=== PATIENT | male | born 1970 | race Caucasian/White ===

== ENCOUNTER 2016-12-30 10:45 | Emergency (ER) | payer BC ==
[~2016-12-30] VITALS: Ht 190.5 cm; Wt 129.2 kg
[2016-12-30 10:48] VITALS: TEMP 99.5; Ht 190.5 cm; Wt 129.2 kg
--- OUTSIDE RECORDS SUMMARY | 2016-12-30 10:50 | XMS REPORT | Continuity of Care Document ---
Author Author [facility] Organization [facility] Address Unknown Phone Unavailable Allergies Active Description Code Type Severity Reaction Onset Reported/Identified Relationship to Patient Clinical Status Yes No Known Medication Allergies NKMA N/A N/A 10/28/2014 Medications Problems Procedures Results Test Result Range Comprehensive Metabolic Panel (CMP) - 08/08/16 11:15 Albumin 4.5 g/dL 3.5-5.0 Alkaline Phosphatase 66 U/L 40-150 ALT (SGPT) 32 U/L 0-55 Anion Gap 11 NA 3-20 AST (SGOT) 26 U/L 5-34 Bilirubin Total 1.1 mg/dL 0.2-1.2 BUN 12 mg/dL 9-21 Calcium 9.4 mg/dL 8.9-10.5 Chloride 108 mEq/L 99-111 CO2 21 mEq/L 23-31 Creatinine 1.05 mg/dL 0.72-1.25 Globulin 2.6 g/dL 1.8-4.0 Glucose 84 mg/dL 70-99 Potassium 4.4 mEq/L 3.5-5.2 Protein 7.1 g/dL 6.1-7.7 Sodium 140 mEq/L 135-144 Lipid Panel - 08/08/16 11:15 Cardiac Risk 4.3 0.0-5.7 Cholesterol 152 mg/dL 0-199 HDL Cholesterol 35 mg/dL 40-84 LDL Cholesterol 98 mg/dL 0-130 Triglycerides 96 mg/dL 0-149 VLDL Cholesterol 19 mg/dL 0-28 eGFR - 08/08/16 11:15 eGFR >60 mL/min >60 Encounters ACCT No. Visit Date/Time Discharge Status Pt. Type Provider Facility Loc./Unit Complaint [id number] 12/09/2016 13:05:00 2016 23:59:00 DIS Outpatient Stephania Hall [facility] swollen left knee. glands in neck swollen [id number] 08/08/2016 10:29:00 2015 23:59:00 DIS Outpatient Real Ford Neftali [facility] New FM TCPA PAIN IN GROIN ON RIGHT SIDE [id number] 05/03/2016 13:55:00 2015 23:59:00 DIS Outpatient Zain Zarate [facility] New IC SORE THROAT [id number] 02/06/2016 17:07:00 2015 23:59:00 DIS Outpatient Zain Zarate [facility] New IC RT KNEE SWELLING [id number] 12/15/2015 14:16:00 2015 23:59:00 DIS Outpatient Mervin Moon [facility] FC Ortho ACC rt knee pain [id number] 12/07/2015 13:09:00 2015 23:59:00 DIS Outpatient Stephania Hall [facility] New FM ACC Painful right knee [id number] 06/20/2015 12:58:00 2014 23:59:00 DIS Outpatient Stephania Hall [facility] New FM ZACARIAS [id number] 12/30/2016 09:46:00 ACT Outpatient Stephania Hall [facility] New FM left knee pain. hot to touch. fever
[2016-12-30] MEDS ORDERED: ACET-62 PO (11:00)
[2016-12-30] MEDS ORDERED: IBUP-1724 PO (11:00)
[2016-12-30] MEDS ORDERED: NO ROUTINE MEDS (11:00)
--- NOTE | 2016-12-30 11:00 | NUR ---
PROVIDER DR MONTERO AT BEDSIDE FOR H&P
--- NOTE | 2016-12-30 11:09 | ERPDOC ---
Departure Disposition Decision Date: December 30, 2016 Disposition Decision Time: 14:26 Disposition: 01 DISCHARGED HOME, SELF-CARE Impression Impression Impression: Primary Impression: Infection of left knee Severity: Moderate Condition: Improved Seen By: Physician only Referrals: FRACISCO CALLAHAN 2 Days FridayJanuary 01 in the office at 9am Patient Instructions: Leg Pain (ED) Problems/Meds/Labs Reviewed?: Yes Medications reviewed and manag: Yes Follow up care ordered?: Yes Mental Status: Alert, Oriented Scripts Cephalexin (Keflex) 500 Mg Capsule 1 CAP PO QID for knee infection for 10 Days, #40 CAP 0 Refills Prov: ELIGIO MONTERO DO 12/30/16 HPI General Chief Complaint: Lower Extremity Pain Stated Complaint: POSS INFECTION LEFT KNEE Time Seen by Provider: 10:51 Source: patient (Patient presents to the ER with a 2 week complaint of left knee pain. Apparently, he was seen by Dr. Ford in the office 2 weeks ago, and received an IM injection of steroid. Apparently, his symptoms have been waxing and waining since that time, but this weekend, the knee has been more edematous, warm to the touch, and patient is reporting a tactile temperature. ) Exam Limitations: no limitations HPI Knee Occurred At: home Onset: Changing over time Duration: other Pain Scale: Now & Worst: 4/10 Severity: mild Method of Injury: unknown Modifying Factors: IMPROVES WITH: immobilization, rest, weight bearing, WORSENES WITH: movement Associated Symptoms: other, pain, stiffness, swelling Allergies: Coded Allergies: No Known Allergies (Unverified , 12/30/16) Past History Patient Surgical History arthroscopy left knee x 2 Past Medical History Pt denies signifigant PMH Hx Echocardiogram: No Surgical History Denies Surgeries Family History Family PMH: FOUND: [place], cancer, hypertension Vaccines Hx Influenza Vaccination: No Hx Pneumococcal Vaccination: No Social History Smoking Status: Unknown if ever smoked Does patient use chewing tobac: No Second Hand Exposure: No Substance Use Type: does not use Alcohol Intake: occasionally Housing: house Service: No Occupational Hazard: No Advance Directives: Yes Full Code Record Review Pertinent history updated: Yes Review of Systems Constitutional Constitutional: fever, DENIES: chills Eyes Lids/Accessories: DENIES: erythema, swelling ENMT Ears: DENIES: erythema, pain Balance: DENIES: ataxia, vertigo Sinuses: DENIES: congestion, rhinorrhea Mouth/Throat: DENIES: sore throat Cardiovascular Cardiac: DENIES: chest pain, dyspnea on exertion, orthopnea Rhythm/Rate: DENIES: tachycardia Pulmonary Respiratory: DENIES: cough, dyspnea, sputum GI Upper Abdomen: DENIES: nausea, pain, vomiting Lower Abdomen: DENIES: constipation, diarrhea, pain General: DENIES: dysuria Musculoskeletal General: DENIES: cramps, pain, weakness Integumentary Skin: color change (Mild redness to right knee with edema), DENIES: itching, rash Neurological General: DENIES: ataxia, change in strength, headache, numbness, poor coordination, seizures, syncope, vertigo, weakness Psychiatric Psychiatric: DENIES: anxiety, depression, nervousness Hematologic/Lymphatic Hematologic/Lymphatic: DENIES: anemia Allergic/Immunological Allergic/Immunoligical: DENIES: sneezing All other Systems All Other Systems: Reviewed and Negative Exam General General Nourishment: well nourished, well developed, appears stated age, adult General Body Habitus: well groomed Vital Signs: RN Vital Signs have been reviewed: Yes, Temperature: 99.5, Source : Oral, Heart Rate: 90, Respiratory Rate: 18, BP: 131/78, Pulse Oximetry: 93 Height (Feet): 6 Height (Inches): 3.00 Fastrak Knee Knee : Knee: Left Inspection: erythema, swelling, NOT FOUND: discoloration, pallor Palpation: tender lat. joint line, tender med. joint line, tender patella, warm Stability: A/P cruciate (Intact), MCL intact, anterior drawer sign, posterior drawer sign ROM: extension to 180 degrees, flexion to 0 degrees, NOT FOUND: clicking, popping Neuro: patellar tendon reflex ((+2)), soft touch intact, strength ((+5)) Posterior Tibial pulse: 2+ Dorsalis Pedis pulse: 2+ Eyes (brief) Eyes Brief: found: EOMI, PERRL ENMT (brief) ENMT Brief: FOUND: TM clear, TM good light reflex, mucosa moist, NOT FOUND: pharnyx erythema Neck (brief) Neck Brief: FOUND: trachea midline, NOT FOUND: adenopathy, tenderness, tracheal deviation Respiratory (brief) Respiratory Brief: FOUND: clear all soliman, equal bilaterally Cardiovascular (brief) Cardiac Brief: FOUND: regular rate, regular rhythm Capillary Refill: <2 sec Abdomen (brief) Abdominal Brief: FOUND: bowel normo active x4, soft, NOT FOUND: distended, tender Musculoskeletal (brief) Musculoskeletal Brief: NOT FOUND: spasm, tenderness Integumentary (brief) Integumentary Brief: FOUND: other (Left knee, Edematous, and warm to the touch) , pink, warm Neurologic (brief) Neurological Brief: FOUND: CN w/o gross def to obs, gait w/o gross def to obs, motor-no gross deficits, sensory-no gross deficits, NOT FOUND: ataxia Neurologic RN Documented GCS Eye Opening: Verbal: Motor: Total: Psychiatric (brief) Psychiatric Brief: FOUND: alert, attentive, normal affect, oriented Differential Diagnoses Considering: Cartilage Tear, Cellulitis, Contusion, Dislocation, Fracture, Ligament Tear ACL, Ligament Tear PCL, Meniscal Injury, Patellar Dislocation, Sprain, Strain, Viral Synovitis, Other Progress Results/Orders Orders Procedure Category Date Status Time Iv Lock (Ed Only) EDM 12/30/16 Transmitted 11:03 Cbc W/Auto LAB 12/30/16 Complete Diff-Reflex Manual Bmp - Basic Metabolic LAB 12/30/16 Complete Panel C-Reactive Protein - LAB 12/30/16 Complete CRP 11:03 Blood Culture THOMAS 12/30/16 In Process 11:05 Knee Left 3 Views RAD 12/30/16 Resulted Lidocaine 1% PHA 12/30/16 Complete (Xylocaine 1%) 12:15 Cell Count, Body Fluid LAB 12/30/16 Complete 12:23 Crystal Exam, LAB 12/30/16 In Process Synovial Fl -Ams 12:23 Body Fluid Culture THOMAS 12/30/16 In Process W/Gramstain 12:23 Ct Lower Extremity Lt CT 12/30/16 Resulted W/O Cont Knee Left 2 View RAD 12/30/16 Resulted Ceftriaxone I.V. (Er PHA 12/30/16 Complete Use Only) (Rocephin 14:30 Lab Results Laboratory Tests Test 12/30/16 11:23 12/30/16 11:31 12/30/16 12:15 White Blood Count 11.8T/MM3 Red Blood Count 4.86M/MM3 Hemoglobin 13.9GM/DL Hematocrit 41.7% Mean Corpuscular Volume 85.8UM3 Mean Corpuscular Hemoglobin 28.6UUG Mean Corpuscular Hemoglobin Concent 33.3GM/DL RDW Standard Deviation 39.9FL Platelet Count 250T/MM3 Mean Platelet Volume 10.5UM3 Immature Granulocyte % (Auto) 0.2% Neutrophils (%) (Auto) 79.0% Lymphocytes (%) (Auto) 12.1% Monocytes (%) (Auto) 7.4% Eosinophils (%) (Auto) 1.0% Basophils (%) (Auto) 0.3% Absolute Immature Granulocyte (auto 0.02T/MM3 Absolute Neutrophils (auto) 9.4T/MM3 Absolute Lymphocytes (auto) 1.4T/MM3 Absolute Monocytes (auto) 0.9T/MM3 Absolute Eosinophils (auto) 0.1T/MM3 Absolute Basophils (auto) 0.0T/MM3 Turbidity < 20 Sodium Level 141MEQ/L Potassium Level 4.1MEQ/L Chloride Level 104MEQ/L Carbon Dioxide Level 24MEQ/L Anion Gap 13MEQ/L Blood Urea Nitrogen 12.0MG/DL Creatinine 1.0MG/DL Glomerular Filtration Rate Calc 81 BUN/Creatinine Ratio 12RATIO Glucose Level 119MG/DL Calculated Osmolality 272MOSM/KG Calcium Level 9.1MG/DL Icterus Index < 2 Chemistry Specimen Hemolysis < 15 C-Reactive Protein 221.5MG/L Body Fluid Type Synovial fluid Body Fluid Color Yellow Body Fluid Turbidity Cloudy Body Fluid RBC 8000/MM3 Body Fluid Total Nucleated Cells 18503/MM3 Body Fluid Neutrophils 99% Body Fluid Lymphocytes 1% Body Fluid Monocytes 0% Body Fluid Eosinophils 0% Body Fluid Basophils 0% Body Fluid Other Cells (%) 0% Body Fluid Crystal Quantity Pending Body Fluid Crystal Appearance Pending Body Fluid Crystal Color Pending Medications Current ED Medications Lidocaine HCl 100 mg 100 mg O ONCE INFIL Last administered on 12/30/16 12:18; Start 12/30/16 at 12:15; Stop 12/30/16 at 12:16; Status DC Ceftriaxone Sodium/Sodium Chloride (Rocephin/NS) 100 ml @ 100 mls/hr O ONCE IV Last administered on 12/30/16 14:32; Start 12/30/16 at 14:30; Stop 12/30/16 at 15:10; Status DC Progress Progress Patient resting comfortably, refusing pain medications in the ER and for Home use Consult/PCP Consult/PCP : Physician Contacted: Fracisco Shannan P.A. Time Called: 11:55 Time of first response: 12:00 Type of discussion: Phone Consult/PCP Discussion Details Discussed patient examination, labs and x-ray Has removed fluid from the knee for analysis 1gm Rocephin in the ER then Keflex 500 mg PO QID Will see in the Office Friday at 9am Xray Xray #1: Reason for Exam: Left knee pain Xray: Knee L Interpretation: Normal, Reviewed Written Report Xray #2: Reason for Exam: Left knee, weight bearing Xray: Knee L Interpretation: Normal, Reviewed Written Report CT CT : Reason for Exam: left knee pain, CT: Other (Left knee without contrast) Interpretation: Abnormal, Reviewed Written Report ELIGIO MONTERO DO December 30, 2016 11:09
--- OUTSIDE RECORDS SUMMARY | 2016-12-30 11:09 | XMS REPORT | Continuity of Care Document ---
Author Author [facility] Organization [facility] Address Unknown Phone Unavailable Allergies Active [...] Status Pt. Type Provider Facility Loc./Unit Complaint [id number] 12/09/2016 13:05:00 2016 23:59:00 DIS Outpatient Stephania Hall [facility] swollen left knee. glands in neck swollen [id number] 08/08/2016 10:29:00 2015 23:59:00 DIS Outpatient Rela Ford Neftali [facility] New FM TCPA PAIN IN GROIN ON RIGHT SIDE [id number] 05/03/2016 13:55:00 2015 23:59:00 DIS Outpatient Zain Zarate [facility] New IC SORE THROAT [id number] 02/06/2016 17:07:00 2015 23:59:00 DIS Outpatient Zain Zarate [facility] New IC RT KNEE SWELLING [id number] 12/15/2015 14:16:00 2015 23:59:00 DIS Outpatient Mervin Moon [facility] FC Ortho ACC rt knee pain [id number] 12/07/2015 13:09:00 2015 23:59:00 DIS Outpatient Stephania Hall [facility] New FM ACC Painful right knee [id number] 06/20/2015 12:58:00 2014 23:59:00 DIS Outpatient Stephania Hall [facility] New FM ZACARIAS [id number] 12/30/2016 09:46:00 ACT Outpatient Stephania Hall [facility] New FM left knee pain. hot to touch. fever
[2016-12-30 11:47] LABS: BASOPHILS % (AUTO) 0.3 % (0-2); EOSINOPHILS # (AUTO) 0.1 T/MM3 (0-0.5); HCT - HEMATOCRIT 41.7 % (41-53); HGB - HEMOGLOBIN 13.9 GM/DL (13.5-17.5); IMMATURE GRANULOCYTE # (AUTO) 0.02 T/MM3 (0.00-0.03); IMMATURE GRANULOCYTE % (AUTO) 0.2 % (0.0-0.5); LYMPHOCYTES # (AUTO) 1.4 T/MM3 (1-4.8); LYMPHOCYTES % (AUTO) 12.1 % (23-45); MEAN CORPUSCULAR HGB 28.6 UUG (26-34); MEAN CORPUSCULAR HGB CONC(MCHC 33.3 GM/DL (31-37); MEAN CORPUSCULAR VOLUME 85.8 UM3 (80-100); MEAN PLATELET VOLUME 10.5 UM3 (9.4-12.4); MONOCYTES # (AUTO) 0.9 T/MM3 (0-0.8); MONOCYTES % (AUTO) 7.4 % (0-9.0); NEUTROPHILS #(AUTO)-ABSOLUTE 9.4 T/MM3 (1.8-7.7); RED BLOOD COUNT 4.86 M/MM3 (4.50-5.90); WBC - WHITE BLOOD COUNT 11.8 T/MM3 (4.5-11.0)
[2016-12-30 11:59] LABS: ANION GAP 13 MEQ/L (5-15); BUN/CREATININE RATIO 12 RATIO (6-26); CALCIUM 9.1 MG/DL (8.4-10.2); CHLORIDE 104 MEQ/L (98-107); CO2 - CARBON DIOXIDE 24 MEQ/L (22-30); GLOMERULAR FILTRATION RATE 81; GLUCOSE 119 MG/DL (75-110); POTASSIUM 4.1 MEQ/L (3.6-5); SODIUM 141 MEQ/L (134-144)
--- NOTE | 2016-12-30 12:05 | NUR ---
PROVIDER FRACISCO SOTOMAYOR AT BEDSIDE
[2016-12-30] MEDS ORDERED: LIDOCAINE 1% (10mg/ml) 30ml SDV INFIL ONE (12:15)
--- NOTE | 2016-12-30 12:18 | DI ---
Indication: ITS.REASON: left knee pain PROCEDURE: KNEE LEFT 3 VIEWS: Encounter: Initial Comparison: None Findings: There is no acute fracture, dislocation or malalignment identified. There are perhaps mild changes of osteoarthritis with hypertrophic bony spurring from the dorsum of the patella and the proximal lateral tibial plateau. Impression: No acute osseous abnormality. Mild changes of osteoarthritis. .
--- NOTE | 2016-12-30 13:15 | NUR ---
UPDATE PATIENT LYING IN BED RESTING, DENIES NEEDS AT THIS TIME.
[2016-12-30 13:42] LABS: BODY FLUID TYPE SYNOVIAL FLUID; LYMPHOCYTES,BODY FLUID 1 %; NEUTROPHILS,BODY FLUID 99 %
[2016-12-30 13:43] LABS: BASOPHILS,BODY FLUID 0 %; EOSINOPHILS,BODY FLUID 0 %; MONOCYTES,BODY FLUID 0 %
--- NOTE | 2016-12-30 13:58 | HPPDOC ---
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 He began having right knee pain with swelling below the knee cap about 2 weeks ago. This sounded like a prepatellar bursitis which is consistent with being on his knees frequently. He thought there might have been a little cut around that area but didn't know of any injury that would have caused it. He was seen by Dr Ford and was given an IM steroid injection for treatment of his knee pain. The knee has gradually become more swollen and painful over the last 2 weeks. He felt a "pop" in the knee a couple days ago and the swelling under the patella is now more prominent laterally in the knee. He states it feels tight when he bends the knee. He had several knee scopes in the past and reports "I have no cartilage in my knees anymore". Pain and swelling in his knees are a common finding. Pt presented to the ER today (12/30/16) complaining of right knee pain with generalized body aching and feeling feverish or flu like. His WBC is elevated at 11,800 with 79% neutrophils, CRP is 221.5 I aspirated 80cc off the bursal fluid pocket around the lateral aspect of the knee. This fluid shows Gm positive cocci in pairs with moderate WBCs. C&S is pending. Xrays were not wt bearing and show a good joint space remaining but no acute fracture or other injury. CT scan of the knee was ordered to help distinguish between joint swelling and SQ fluid. The fluid is extracapsular in the soft tissues. Past Medical History Adult Problem List Updates osteoarthritis meniscal injury bilateral knees Surgical History Patient's Surgical History: arthroscopy left knee x 2 Current Medications Acetaminophen (Acetaminophen) 500 Mg Tablet, 1,000 MG PO Q8H PRN for PAIN, ( Reported) Do not exceed 3,200 mg of acetaminophen in a 24 hours period. Last Taken: Unknown Dose on 12/28/16 Cephalexin (Keflex) 500 Mg Capsule, 1 CAP PO QID Ibuprofen (Ibuprofen) 200 Mg Tablet, 800 MG PO Q8H PRN for PAIN, (Reported) Last Taken: Unknown Dose on 12/29/16 [No Routine Meds] , (Reported) Allergies Allergies: Coded Allergies: No Known Allergies (Unverified , 12/30/16) Vaccines NO No UNKNOWN Social History Smoking Status: Unknown if ever smoked Does patient use chewing tobac: No Second Hand Exposure: No Substance Use Type: does not use Alcohol Intake: occasionally Housing: house Service: No Occupational Hazard: No Advance Directives: Yes Full Code Review of Systems Constitutional: REPORTS: other (Has not checked his temp but states he felt warm and was achy all over.) Cardiovascular DENIES: chest pain Pulmonary Respiratory: DENIES: cough, dyspnea GI Upper Abdomen: DENIES: nausea, pain, vomiting General: DENIES: dysuria Musculoskeletal General: see HPI Integumentary Skin: color change (around the left knee.) Neurological General: DENIES: numbness, tingling Psychiatric Psychiatric: DENIES: other (No complaints.) Hematologic/Lymphatic DENIES: anemia Allergic/Immunological DENIES: frequent infections Physical Exam General General: well developed, no acute distress, obese Respiratory FOUND non-labored Cardiovascular FOUND pedal pulses intact Capillary Refill: <2 sec Musculoskeletal Musculoskeletal : Side: Left Knee: FOUND ROM (0-100 pre aspiration. 0-120 post aspiration.), FOUND effusion (Has some mild prepatellar bursal swelling and marked swelling laterally that is felt to be in the SQ tissues. Mild knee effusion noted medially as well. Knee is warm to touch.), FOUND painful ROM (Pt states the knee feels "stiff" with bending. This resolved after aspiration.), FOUND stable to ligament exam Integumentary FOUND erythemia (mild located laterally in the knee.) Neurologic FOUND intact to light touch, FOUND no deficits Psychiatric FOUND alert, FOUND normal affect Laboratory Laboratory Tests Test 12/30/16 11:23 12/30/16 11:31 12/30/16 12:15 White Blood Count 11.8T/MM3 Red Blood Count 4.86M/MM3 Hemoglobin 13.9GM/DL Hematocrit 41.7% Mean Corpuscular Volume 85.8UM3 Mean Corpuscular Hemoglobin 28.6UUG Mean Corpuscular Hemoglobin Concent 33.3GM/DL RDW Standard Deviation 39.9FL Platelet Count 250T/MM3 Mean Platelet Volume 10.5UM3 Immature Granulocyte % (Auto) 0.2% Neutrophils (%) (Auto) 79.0% Lymphocytes (%) (Auto) 12.1% Monocytes (%) (Auto) 7.4% Eosinophils (%) (Auto) 1.0% Basophils (%) (Auto) 0.3% Absolute Immature Granulocyte (auto 0.02T/MM3 Absolute Neutrophils (auto) 9.4T/MM3 Absolute Lymphocytes (auto) 1.4T/MM3 Absolute Monocytes (auto) 0.9T/MM3 Absolute Eosinophils (auto) 0.1T/MM3 Absolute Basophils (auto) 0.0T/MM3 Turbidity < 20 Sodium Level 141MEQ/L Potassium Level 4.1MEQ/L Chloride Level 104MEQ/L Carbon Dioxide Level 24MEQ/L Anion Gap 13MEQ/L Blood Urea Nitrogen 12.0MG/DL Creatinine 1.0MG/DL Glomerular Filtration Rate Calc 81 BUN/Creatinine Ratio 12RATIO Glucose Level 119MG/DL Calculated Osmolality 272MOSM/KG Calcium Level 9.1MG/DL Icterus Index < 2 Chemistry Specimen Hemolysis < 15 C-Reactive Protein 221.5MG/L Body Fluid Type Pending Body Fluid Color Pending Body Fluid Turbidity Pending Body Fluid RBC Pending Body Fluid Total Nucleated Cells Pending Body Fluid Neutrophils Pending Body Fluid Lymphocytes Pending Body Fluid Monocytes Pending Body Fluid Eosinophils Pending Body Fluid Basophils Pending Body Fluid Other Cells (%) Pending Body Fluid Crystal Quantity Pending Body Fluid Crystal Appearance Pending Body Fluid Crystal Color Pending Radiology Radiology CT scan confirms the swelling is extracapsular. Pt does have marked deg changes in the medial joint compartment and patellofemoral joint. Assessment & Plan Problems: (1) Infection of left prepatellar bursa Status: Acute Assessment & Plan: x Aspiration of the SQ fluid performed by me in the ER confirms Gm positive cocci in pairs. Pt will be given IV Rocephin and then begin PO Keflex 500mg QID. Close follow up in orthopedic clinic on Friday 9AM or sooner if knee pain, swelling, warmth or redness worsens. Await final C&S report to confirm appropriate antibiotic coverage. Discussed possible need for surgical intervention if symptoms worsen. FRACISCO CALLAHAN December 30, 2016 13:48
--- NOTE | 2016-12-30 14:27 | NUR ---
PROVIDER FRACISCO SOTOMAYOR AT BEDSIDE TO DISCUSS RESULTS AND POC
[2016-12-30] MEDS ORDERED: CEFTRIAXONE I.V. (ER USE ONLY) 1 G in NORMAL SALINE 100 ML IV ONE (14:30)
[2016-12-30] MEDS ORDERED: CEPH-583 PO (14:33)
--- NOTE | 2016-12-30 14:35 | DI ---
Indication: ITS.REASON: Possible septic knee PROCEDURE: CT LOWER EXTREMITY LT W/O CONT: Encounter: Initial Comparison: None Three-dimensional volumetric MIP reconstructions were performed. Automated Exposure Control and Iterative Reconstruction dose reducing techniques were utilized. FINDINGS: There is extensive fluid in the prepatellar bursa consistent with prepatellar bursitis. There is no definite effusion or extension into the joint space. There is moderate chondromalacia of the dorsum of the patella with hypertrophic bony changes. There is mild spurring of the medial femoral condyle with subchondral sclerosis and subchondral cystic changes. There is relative sparing of the lateral joint compartment. IMPRESSION: Moderate osteoarthritis primarily involving the medial joint compartment and patellofemoral joint compartment without definite effusion. Extensive fluid in the region of the prepatellar bursa suggesting prepatellar bursitis. No definite communication to the joint space. .
--- NOTE | 2016-12-30 14:36 | DI ---
Indication: ITS.REASON: lEFT KNEE PAIN PROCEDURE: KNEE LEFT 2 VIEW: Encounter: Initial Comparison: None Findings: There is no acute fracture, dislocation or malalignment identified. There are mild changes of osteoarthritis, with hypertrophic bony spurring. Impression: No acute osseous abnormality. .
[2016-12-30 15:06] VITALS: BP 119/56; PULSE 85; RESP 19; O2SAT 95
--- NOTE | 2016-12-31 14:18 | PROCEDUREF ---
DATE OF PROCEDURE December 30, 2016 PRE-PROCEDURE DIAGNOSIS Prepatellar bursitis of the left knee. POST INJECTION DIAGNOSIS Prepatellar bursitis of the left knee. PROCEDURE NOTE After appropriate verbal consent was obtained, the left knee was prepped lateral to the patella with chlorhexidine. I then used a 25-gauge 1-inch needle to infiltrate 3 ml of 1% Xylocaine into the subcutaneous tissues, being careful not to access the joint itself. Then, using an 18-gauge needle, I injected from a posterior direction into an anterior direction again in an attempt to avoid tapping the knee joint itself. I easily encountered the joint fluid and was able aspirate 80 ml of fluid off this prepatellar bursa. Fluid was yellow in color and cloudy. A 20 ml specimen was sent to the lab for additional studies. A 60 ml syringe was then used to aspirate the final amount. Following the procedure, needles were all removed. The area was again cleansed and sterile Band-Aid was applied. The patient tolerated the procedure well and there were no complications. ALLA
== END 2016-12-30 15:06 | disposition home or self-care (01) ==
LOC: ED 10:45
DX: M71.162 Other infective bursitis, left knee (principal); B96.89 Other specified bacterial agents as the cause of diseases classified elsewhere
CPT/HCPCS: 20610; 36415; 73560; 73562; 73700; 80048; 85025; 86140; 87040; 87070; 89051; 89060; 96365; 99284; J0696; J7050; 87150